=== PATIENT | male | born 1980 | race Asian ===

== ENCOUNTER 2017-11-06 17:35 | Emergency (ER) | payer MEDICAID ==
[~2017-11-06] VITALS: Ht 180.3 cm; Wt 123.5 kg
[2017-11-06 17:40] VITALS: BP 93/62
[2017-11-06] MEDS ORDERED: HYDROcodone/APAP 5/325 TABLET PO STA (17:57)
[2017-11-06] MEDS ORDERED: HYDROcodone/APAP 5/325 TABLET ONE (18:24)
[2017-11-06] MEDS ORDERED: IBUP-1484 PO (18:28)
[2017-11-06] MEDS ORDERED: CYCL5TAB PO (18:28)
== END 2017-11-06 18:47 | disposition home or self-care (01) ==
LOC: ED 18:40
DX: J20.8 Acute bronchitis due to other specified organisms (principal); B97.89 Other viral agents as the cause of diseases classified elsewhere
CPT/HCPCS: 71046; 99284

== ENCOUNTER 2018-01-05 04:34 | Emergency (ER) | payer MEDICAID ==
[~2018-01-05] VITALS: Ht 180.3 cm; Wt 123.9 kg
[~2018-01-05 04:34] MED LIST: CYCL5TAB PO; IBUP-1484 PO
[2018-01-05 04:35] VITALS: BP 135/83
[2018-01-05] MEDS ORDERED: KETOROLAC 30 MG/1 ML ONE (05:45)
[2018-01-05] MEDS ORDERED: DIAZEPAM 5 MG TABLET ONE (05:46)
[2018-01-05] MEDS ORDERED: DIAZEPAM 5 MG TABLET PO ONE (06:00)
[2018-01-05] MEDS ORDERED: KETOROLAC 30 MG/1 ML IM ONE (06:00)
== END 2018-01-05 06:58 | disposition home or self-care (01) ==
LOC: ED 06:52
DX: M51.26 Other intervertebral disc displacement, lumbar region (principal)
CPT/HCPCS: 96372; 99283; J1885

== ENCOUNTER 2018-03-30 10:36 | Emergency (ER) | payer MEDICAID ==
[~2018-03-30] VITALS: Ht 180.3 cm; Wt 120.0 kg
[2018-03-30] MEDS ORDERED: OXYcodone/APAP 10/325MG TABLET PO ONE (11:30)
[2018-03-30] MEDS ORDERED: SODIUM CHLORIDE FLUSH 10ML SYR IVF ONE (11:30)
[2018-03-30] MEDS ORDERED: SODIUM CHLORIDE 0.9% 1,000ML IVBOLUS ONE (11:30)
[2018-03-30] MEDS ORDERED: OXYcodone/APAP 10/325MG TABLET ONE (11:37)
[2018-03-30 12:02] LABS: BASOPHILS # (AUTO) 0.04 x10^3/uL (0-0.1); BASOPHILS % (AUTO) 0 % (0-1); EOSINOPHILS # (AUTO) 0.54 x10^3/uL (0-0.4); EOSINOPHILS % (AUTO) 6 % (1-7); LYMPHOCYTES # (AUTO) 2.58 x10^3/uL (1-3.4); LYMPHOCYTES % (AUTO) 28 % (22-44); MD NO; MEAN CORPUSCULAR HEMOGLOBIN 30.7 pg (27.5-34.5); MEAN CORPUSCULAR HGB CONC 34.3 g/dL (33.2-36.2); MEAN CORPUSCULAR VOLUME 89.7 fL (81-97); MEAN PLATELET VOLUME 8.7 fL (7.4-10.4); MONOCYTES # (AUTO) 0.83 x10^3/uL (0.2-0.8); MONOCYTES % (AUTO) 9 % (2-9); NEUTROPHILS % (AUTO) 56 % (42-75); PLATELET COUNT 322 x10^3/uL (130-400); RED BLOOD COUNT 5.28 x10^6/uL (4.38-5.82); RED CELL DISTRIBUTION WIDTH 14.1 % (9.4-14.8)
[2018-03-30 12:04] LABS: ALBUMIN 3.4 g/dL (3.4-5.0); ANION GAP 7 mmol/L (5-15); CALCIUM 8.3 mg/dL (8.5-10.1); CHLORIDE 108 mmol/L (98-107)
[2018-03-30 12:12] LABS: CREATININE 0.75 mg/dL (0.7-1.3); TROPONIN I < 0.015 ng/mL (0.000-0.045)
[2018-03-30 13:06] VITALS: BP 121/83
== END 2018-03-30 13:09 | disposition home or self-care (01) ==
LOC: ED 11:00
DX: S20.02XA Contusion of left breast, initial encounter (principal); S20.212A Contusion of left front wall of thorax, initial encounter; R55 Syncope and collapse; W18.30XA Fall on same level, unspecified, initial encounter; Y93.01 Activity, walking, marching and hiking; Y99.8 Other external cause status; Y92.89 Other specified places as the place of occurrence of the external cause
CPT/HCPCS: 36415; 71250; 80048; 82040; 84484; 85025; 93005; 96360; 96361; 99285; J7030

== ENCOUNTER 2018-04-17 21:53 | Emergency (ER) | payer MEDICAID ==
[~2018-04-17] VITALS: Ht 180.3 cm; Wt 125.0 kg
[2018-04-17 21:56] VITALS: BP 121/91
[2018-04-17] MEDS ORDERED: KETOROLAC 30 MG/1 ML ONE (22:55)
[2018-04-17] MEDS ORDERED: DIAZEPAM 5 MG TABLET ONE (22:55)
[2018-04-17] MEDS ORDERED: DIAZEPAM 5 MG TABLET PO ONE (23:00)
[2018-04-17] MEDS ORDERED: KETOROLAC 30 MG/1 ML IM ONE (23:00)
[2018-04-18] MEDS ORDERED: HYDROcodone/APAP 5/325 TABLET PO ONE
[2018-04-18] MEDS ORDERED: HYDROcodone/APAP 5/325 TABLET ONE (00:01)
== END 2018-04-18 00:59 | disposition home or self-care (01) ==
LOC: ED 04-18 00:30
DX: S39.012A Strain of muscle, fascia and tendon of lower back, initial encounter (principal); G89.29 Other chronic pain; X50.9XXA Other and unspecified overexertion or strenuous movements or postures, initial encounter; Y93.89 Activity, other specified; Y99.8 Other external cause status; Y92.89 Other specified places as the place of occurrence of the external cause
CPT/HCPCS: 96372; 99283; J1885

== ENCOUNTER 2018-05-15 20:49 | Emergency (ER) | payer MEDICAID ==
[~2018-05-15] VITALS: Ht 180.3 cm; Wt 123.9 kg
[2018-05-15 20:59] VITALS: BP 165/95
[2018-05-15] MEDS ORDERED: DIAZEPAM 5 MG TABLET PO ONE (21:30)
[2018-05-15] MEDS ORDERED: HYDROcodone/APAP 5/325 TABLET PO ONE (21:30)
[2018-05-15] MEDS ORDERED: KETOROLAC 30 MG/1 ML IM ONE (21:30)
[2018-05-15] MEDS ORDERED: DIAZEPAM 5 MG TABLET ONE (21:33)
[2018-05-15] MEDS ORDERED: KETOROLAC 30 MG/1 ML ONE (21:34)
[2018-05-15] MEDS ORDERED: HYDROcodone/APAP 5/325 TABLET ONE (21:34)
== END 2018-05-15 21:50 | disposition home or self-care (01) ==
LOC: ED 21:40
DX: S16.1XXA Strain of muscle, fascia and tendon at neck level, initial encounter (principal); V49.49XA Driver injured in collision with other motor vehicles in traffic accident, initial encounter; Y93.89 Activity, other specified; Y99.8 Other external cause status; Y92.410 Unspecified street and highway as the place of occurrence of the external cause
CPT/HCPCS: 96372; 99283; J1885

== ENCOUNTER 2018-08-07 17:03 | Emergency (ER) | payer MEDICAID ==
[~2018-08-07] VITALS: Ht 180.3 cm; Wt 121.8 kg
[2018-08-07 17:46] LABS: BASOPHILS # (AUTO) 0.08 x10^3/uL (0-0.1); BASOPHILS % (AUTO) 1 % (0-1); EOSINOPHILS # (AUTO) 0.33 x10^3/uL (0-0.4); EOSINOPHILS % (AUTO) 3 % (1-7); LYMPHOCYTES # (AUTO) 2.98 x10^3/uL (1-3.4); LYMPHOCYTES % (AUTO) 24 % (22-44); MD NO; MEAN CORPUSCULAR HEMOGLOBIN 30.7 pg (27.5-34.5); MEAN CORPUSCULAR HGB CONC 33.6 g/dL (33.2-36.2); MEAN CORPUSCULAR VOLUME 91.4 fL (81-97); MEAN PLATELET VOLUME 8.1 fL (7.4-10.4); MONOCYTES # (AUTO) 1.04 x10^3/uL (0.2-0.8); MONOCYTES % (AUTO) 9 % (2-9); NEUTROPHILS # (AUTO) 7.81 x10^3/uL (1.8-6.8); NEUTROPHILS % (AUTO) 64 % (42-75); PLATELET COUNT 332 x10^3/uL (130-400); RED BLOOD COUNT 5.54 x10^6/uL (4.38-5.82); RED CELL DISTRIBUTION WIDTH 13.7 % (9.4-14.8)
[2018-08-07 17:58] LABS: ALANINE AMINOTRANSFERASE 36 U/L (12-78); ALBUMIN 3.8 g/dL (3.4-5.0); ANION GAP 5 mmol/L (5-15); CALCIUM 9.1 mg/dL (8.5-10.1); CHLORIDE 108 mmol/L (98-107); CREATININE 0.79 mg/dL (0.7-1.3)
[2018-08-07 18:01] LABS: RAPID INFLUENZA A Negative (Negative); RAPID INFLUENZA B Negative (Negative)
[2018-08-07 18:03] LABS: ALKALINE PHOSPHATASE 151 U/L (45-117); BILIRUBIN,TOTAL 0.2 mg/dL (0.2-1.0); TOTAL PROTEIN 7.7 g/dL (6.4-8.2); TROPONIN I < 0.015 ng/mL (0.000-0.045)
--- NOTE | 2018-08-07 19:06 | NUR ---
FROM LOBBY TO ROOM AT THIS TIME
[2018-08-07 19:20] VITALS: BP 120/83
--- NOTE | 2018-08-07 19:24 | NUR ---
PT PRESNTING TO ER FOR COUGH SINCE TUESDAY AND REPRODUCIBLE CP. CONNECTED TO MONITORING, VSS. ALL RESULTS BACK. AWAITING MD ASSESSMENT AND FURTHER ORDERS. CALL LIGHT WITHIN REACH
== END 2018-08-07 20:00 | disposition home or self-care (01) ==
LOC: ED 19:47
DX: J06.9 Acute upper respiratory infection, unspecified (principal); R06.00 Dyspnea, unspecified
CPT/HCPCS: 36415; 71046; 80053; 83880; 84484; 85025; 87400; 93005; 99284

== ENCOUNTER 2018-12-18 21:07 | Emergency (ER) | payer MEDICAID ==
[~2018-12-18] VITALS: Ht 180.3 cm; Wt 122.1 kg
--- NOTE | 2018-12-18 22:05 | NUR ---
PT RESTING ON GURNEY WITH SON AT BEDSIDE. PT HERE FOR CHEST PAIN THAT STARTED THIS MORNING.
[2018-12-18] MEDS ORDERED: MAALOX/HYOSCYAMINE/LIDOCAINE 45 ML BTL ONE (22:10)
[2018-12-18] MEDS ORDERED: ASPIRIN 81 MG TABLET CHEW ONE (22:10)
--- NOTE | 2018-12-18 22:18 | NUR ---
PT MEDICATED PER EMAR.
[2018-12-18 22:30] LABS: BASOPHILS # (AUTO) 0.06 x10^3/uL (0-0.1); BASOPHILS % (AUTO) 1 % (0-1); EOSINOPHILS # (AUTO) 0.42 x10^3/uL (0-0.4); EOSINOPHILS % (AUTO) 3 % (1-7); LYMPHOCYTES # (AUTO) 3.87 x10^3/uL (1-3.4); LYMPHOCYTES % (AUTO) 31 % (22-44); MD NO; MEAN CORPUSCULAR HEMOGLOBIN 30.5 pg (27.5-34.5); MEAN CORPUSCULAR HGB CONC 33.4 g/dL (33.2-36.2); MEAN CORPUSCULAR VOLUME 91.5 fL (81-97); MEAN PLATELET VOLUME 8.3 fL (7.4-10.4); MONOCYTES # (AUTO) 0.62 x10^3/uL (0.2-0.8); MONOCYTES % (AUTO) 5 % (2-9); NEUTROPHILS # (AUTO) 7.41 x10^3/uL (1.8-6.8); NEUTROPHILS % (AUTO) 60 % (42-75); PLATELET COUNT 304 x10^3/uL (130-400); RED BLOOD COUNT 5.21 x10^6/uL (4.38-5.82); RED CELL DISTRIBUTION WIDTH 13.5 % (9.4-14.8)
[2018-12-18] MEDS ORDERED: MAALOX/HYOSCYAMINE/LIDOCAINE 45 ML BTL PO ONE (22:30)
[2018-12-18] MEDS ORDERED: ASPIRIN 81 MG TABLET CHEW PO ONE (22:30)
[2018-12-18 22:43] LABS: ALANINE AMINOTRANSFERASE 44 U/L (12-78); ALBUMIN 3.5 g/dL (3.4-5.0); ANION GAP 6 mmol/L (5-15); CALCIUM 8.3 mg/dL (8.5-10.1); CHLORIDE 106 mmol/L (98-107); CREATININE 0.91 mg/dL (0.7-1.3)
[2018-12-18 22:47] LABS: ALKALINE PHOSPHATASE 115 U/L (45-117); BILIRUBIN,TOTAL 0.3 mg/dL (0.2-1.0); TOTAL PROTEIN 7.1 g/dL (6.4-8.2); TROPONIN I < 0.015 ng/mL (0.000-0.045)
[2018-12-18 23:18] VITALS: BP 122/78
[2018-12-18] MEDS ORDERED: KETOROLAC 30 MG/1 ML IM ONE (23:30)
[2018-12-18] MEDS ORDERED: KETOROLAC 30 MG/1 ML ONE (23:34)
--- NOTE | 2018-12-18 23:38 | NUR ---
PT MEDICATED PER EMAR FOR PAIN.
== END 2018-12-19 00:01 | disposition home or self-care (01) ==
LOC: ED 22:02
DX: R07.89 Other chest pain (principal); M94.0 Chondrocostal junction syndrome [Tietze]; F17.210 Nicotine dependence, cigarettes, uncomplicated
CPT/HCPCS: 36415; 71046; 80053; 83690; 84484; 85025; 93005; 96372; 99284; J1885

== ENCOUNTER 2019-05-15 18:02 | Emergency (ER) | payer MEDICAID ==
[~2019-05-15] VITALS: Ht 180.3 cm; Wt 125.0 kg
[~2019-05-15 18:02] MED LIST changes: -IBUP-1484 PO; +IBUP-1902 PO
[2019-05-15 18:04] VITALS: BP 136/79
[2019-05-15] MEDS ORDERED: OXYcodone/APAP 5/325MG TABLET PO ONE (19:30)
[2019-05-15] MEDS ORDERED: OXYcodone/APAP 5/325MG TABLET ONE (19:35)
== END 2019-05-15 19:58 | disposition home or self-care (01) ==
LOC: ED 19:53
DX: S40.011A Contusion of right shoulder, initial encounter (principal); G89.11 Acute pain due to trauma; M25.512 Pain in left shoulder; M25.552 Pain in left hip; F17.200 Nicotine dependence, unspecified, uncomplicated; V00.131A Fall from skateboard, initial encounter; Y93.51 Activity, roller skating (inline) and skateboarding; Y92.328 Other athletic field as the place of occurrence of the external cause; Y99.8 Other external cause status
CPT/HCPCS: 99283; 99284

== ENCOUNTER 2019-08-18 12:59 | Emergency (ER) | payer MEDICAID ==
[~2019-08-18] VITALS: Ht 180.3 cm; Wt 118.0 kg
[2019-08-18 13:04] VITALS: BP 119/74
--- NOTE | 2019-08-18 14:15 | NUR ---
PT GIVEN DC INSTRUCTIONS AND SCRIPT. PT EDUCATED REGARDING DC RX FOR TESSALON AND CASPER. PT A&O, RESPS EVEN AND UNLABORED, NADN AT DC. PT AMB TO DC DESK WITH STEADY GAIT.
== END 2019-08-18 14:16 | disposition home or self-care (01) ==
LOC: ED 13:55
DX: B34.9 Viral infection, unspecified (principal); F17.200 Nicotine dependence, unspecified, uncomplicated
CPT/HCPCS: 71046; 99283

== ENCOUNTER 2019-10-06 19:34 | Emergency (ER) | payer MEDICAID ==
[~2019-10-06] VITALS: Ht 180.3 cm; Wt 107.5 kg
--- NOTE | 2019-10-06 20:38 | NUR ---
PT HAS CO COUGH AND CP. DENIES SOB, N/V/D.
--- NOTE | 2019-10-06 20:57 | NUR ---
REPORT FROM DEBBIE DICKSON.
--- NOTE | 2019-10-06 20:58 | NUR ---
REPORT TO BETTY
[2019-10-06 21:10] LABS: BASOPHILS # (AUTO) 0.25 x10^3/uL (0-0.1); BASOPHILS % (AUTO) 2 % (0-1); EOSINOPHILS # (AUTO) 0.19 x10^3/uL (0-0.4); EOSINOPHILS % (AUTO) 2 % (1-7); LYMPHOCYTES # (AUTO) 3.03 x10^3/uL (1-3.4); LYMPHOCYTES % (AUTO) 25 % (22-44); MD NO; MEAN CORPUSCULAR HEMOGLOBIN 30.3 pg (27.5-34.5); MEAN CORPUSCULAR HGB CONC 33.2 g/dL (33.2-36.2); MEAN CORPUSCULAR VOLUME 91.2 fL (81-97); MEAN PLATELET VOLUME 8.6 fL (7.4-10.4); MONOCYTES # (AUTO) 1.09 x10^3/uL (0.2-0.8); MONOCYTES % (AUTO) 9 % (2-9); NEUTROPHILS # (AUTO) 7.56 x10^3/uL (1.8-6.8); NEUTROPHILS % (AUTO) 62 % (42-75); PLATELET COUNT 300 x10^3/uL (130-400); RED BLOOD COUNT 5.08 x10^6/uL (4.38-5.82)
[2019-10-06 21:22] LABS: ALBUMIN 3.7 g/dL (3.4-5.0); ANION GAP 8 mmol/L (5-15); CALCIUM 8.8 mg/dL (8.5-10.1); CHLORIDE 106 mmol/L (98-107)
[2019-10-06 21:27] LABS: CREATININE 0.75 mg/dL (0.7-1.3); TROPONIN I < 0.015 ng/mL (0.000-0.045)
--- NOTE | 2019-10-06 21:51 | NUR ---
ALL RESULTS BACK AT THIS TIME
[2019-10-06 22:14] VITALS: BP 110/69
== END 2019-10-06 22:16 | disposition home or self-care (01) ==
LOC: ED 22:13
DX: M94.0 Chondrocostal junction syndrome [Tietze] (principal); R07.89 Other chest pain; B34.9 Viral infection, unspecified
CPT/HCPCS: 36415; 71046; 80048; 82040; 84484; 85025; 93005; 99285